=== PATIENT | female | born 2000 | race Caucasian/White ===

== ENCOUNTER 2023-11-03 01:30 | Emergency (ER) | payer MEDICAID ==
[~2023-11-03] VITALS: Ht 152.4 cm; Wt 59.4 kg
[2023-11-03 01:43] VITALS: BP 95/44; PULSE 104; RESP 20; TEMP 98.9; O2SAT 98
[2023-11-03] MEDS ORDERED: KETOROLAC 30 MG/ML VIAL IVP ONE (01:55)
[2023-11-03] MEDS ORDERED: NACL 0.9% 1,000 ML IV ONE (01:55)
[2023-11-03 02:50] LABS: APPEARANCE,URINE CLEAR (CLEAR); BILIRUBIN,URINE NEGATIVE (NEGATIVE); BLOOD, URINE TRACE-I (NEGATIVE); COLOR,URINE YELLOW (YELLOW); LEUKOCYTE ESTERASE ,URINE NEGATIVE (NEGATIVE); NITRITE, URINE NEGATIVE (NEGATIVE); PROTEIN,URINE TRACE (NEGATIVE); UGLUCOSE NEGATIVE (NEGATIVE); UROBILINOGEN,URINE 0.2 EU/dL (0.2 - 1)
[2023-11-03 02:59] LABS: BASOPHILS % (AUTO) 0.1 % (0.0-2.0); HEMATOCRIT 39.4 % (36-48); HEMOGLOBIN 13.5 g/dL (12.0-16.0); LYMPHOCYTES # (AUTO) 0.7 K/uL (2.5-16.5); LYMPHOCYTES % (AUTO) 3.5 % (20.5-51.1); MEAN CORPUSCULAR HEMOGLOBIN 31 pg (27-31); MEAN CORPUSCULAR HGB CONC 34 g/dL (33-37); MEAN CORPUSCULAR VOLUME 90.9 fL (80-94); MONOCYTES # (AUTO) 0.9 K/uL (0.8-1.0); MONOCYTES % (AUTO) 4.7 % (1.7-9.3); NEUTROPHILS # (AUTO) 16.9 K/uL (1.8-7.7); NEUTROPHILS % (AUTO) 91.7 % (42.2-75.2); PLATELET COUNT (AUTO) 244 K/uL (140-450); RED BLOOD CELL COUNT(AUTO) 4.33 MIL/uL (4.20-5.40); RED CELL DISTRIBUTION WIDTH 12.9 % (11.6-13.7); WHITE BLOOD COUNT (AUTO) 18.5 K/uL (4.8-10.8)
[2023-11-03 03:02] LABS: BACTERIA,URINE >30 (MANY) /HPF (None Seen); MUCUS,URINE 1+ /LPF (None Seen); RBC,URINE 0-5 /HPF (0-5); SQUAMOUS EPITHELIAL CELL,UR 4-10 (MOD) /LPF (0-3 (FEW))
[2023-11-03 03:45] LABS: POTASSIUM 3.6 mmol/L (3.5-5.1)
[2023-11-03 03:46] LABS: ANION GAP 12.8 (8-16); CARBON DIOXIDE 25.8 mmol/L (21-32); CREATININE 0.9 mg/dL (0.6-1.3)
[2023-11-03 03:50] LABS: ALBUMIN 3.9 g/dL (3.4-5.0); TOTAL BILIRUBIN 2.1 mg/dL (0.0-1.0); TOTAL PROTEIN, SERUM 8.1 g/dL (6.4-8.2)
[2023-11-03] MEDS ORDERED: IBUP-2213 PO (05:01)
[2023-11-03] MEDS ORDERED: CIPR500T4 PO (05:01)
[2023-11-03] MEDS ORDERED: ONDA8TAB87 PO (05:01)
[2023-11-03 05:13] VITALS: BP 95/44; PULSE 104; RESP 20; TEMP 98.9; O2SAT 98
== END 2023-11-03 05:13 | disposition home or self-care (01) ==
LOC: MED 01:30
DX: N39.0 Urinary tract infection, site not specified (principal); R11.2 Nausea with vomiting, unspecified; R19.7 Diarrhea, unspecified
CPT/HCPCS: 36415; 74177; 80053; 81001; 81025; 83690; 85025; 87086; 96361; 96374; 99285; J1885; J7030; Q9967

== ENCOUNTER 2023-11-06 23:52 | Emergency (ER) | payer MEDICAID ==
[~2023-11-06] VITALS: Ht 152.4 cm; Wt 58.1 kg
[~2023-11-06 23:52] MED LIST: CIPR500T4 PO; IBUP-2213 PO; ONDA8TAB87 PO
[2023-11-07 00:26] VITALS: BP 98/66; PULSE 104; RESP 16; TEMP 98.7; O2SAT 100
[2023-11-07] MEDS ORDERED: NACL 0.9% 1,000 ML IV ONE ×3 (00:50→02:05)
[2023-11-07] MEDS ORDERED: HALOPERIDOL IM 5 MG/ML VIAL IM ONE (00:50)
[2023-11-07] MEDS ORDERED: METOCLOPRAMIDE 10 MG/2 ML INJ VIAL IVP ONE (00:50)
[2023-11-07] MEDS ORDERED: cefTRIAXone 1,000 MG VIAL ONE (01:05)
[2023-11-07 01:28] LABS: HEMATOCRIT 43.8 % (36-48); HEMOGLOBIN 14.8 g/dL (12.0-16.0); MEAN CORPUSCULAR HEMOGLOBIN 31 pg (27-31); MEAN CORPUSCULAR HGB CONC 34 g/dL (33-37); MEAN CORPUSCULAR VOLUME 92.1 fL (80-94); PLATELET COUNT (AUTO) 382 K/uL (140-450); RED BLOOD CELL COUNT(AUTO) 4.75 MIL/uL (4.20-5.40); RED CELL DISTRIBUTION WIDTH 13.5 % (11.6-13.7); WHITE BLOOD COUNT (AUTO) 6.2 K/uL (4.8-10.8)
[2023-11-07 01:50] LABS: APPEARANCE,URINE HAZY (CLEAR); BILIRUBIN,URINE 2+ (NEGATIVE); BLOOD, URINE NEGATIVE (NEGATIVE); COLOR,URINE BROWN (YELLOW); LEUKOCYTE ESTERASE ,URINE NEGATIVE (NEGATIVE); NITRITE, URINE POSITIVE (NEGATIVE); PROTEIN,URINE 3+ (NEGATIVE); UGLUCOSE NEGATIVE (NEGATIVE)
[2023-11-07 01:55] LABS: ALBUMIN 2.3 g/dL (3.4-5.0); TOTAL BILIRUBIN 1.6 mg/dL (0.0-1.0); TOTAL PROTEIN, SERUM 7.4 g/dL (6.4-8.2)
[2023-11-07] MEDS ORDERED: KETOROLAC 30 MG/ML VIAL IVP ONE (01:55)
[2023-11-07 02:16] LABS: AMPHETAMINE, URINE NEGATIVE ng/ml (NEG <=1000); BARBITURATE, URINE NEGATIVE ng/ml (NEG <=200); BENZODIAZEPINE, URINE NEGATIVE ng/mL (NEG <=200); CANNABINOID, URINE NEGATIVE ng/mL (NEG <=50); COCAINE, URINE NEGATIVE ng/mL (NEG <=300); OPIATE, URINE NEGATIVE ng/mL (NEG <=2000); PHENCYCLIDINE SCREEN,URINE NEGATIVE ng/mL (NEG <=25)
[2023-11-07 02:20] LABS: CALCIUM 8.6 mg/dL (8.5-10.1); CARBON DIOXIDE 20.1 mmol/L (21-32); POTASSIUM 3.1 mmol/L (3.5-5.1)
[2023-11-07 02:25] LABS: ICTOTEST POSITIVE (NEGATIVE)
[2023-11-07 02:26] LABS: BACTERIA,URINE 3+ /HPF (None Seen); RBC,URINE 0-5 /HPF (0-5)
[2023-11-07 02:27] LABS: MUCUS,URINE 1+ /LPF (None Seen); SQUAMOUS EPITHELIAL CELL,UR 0-3 (FEW) /LPF (0-3 (FEW))
[2023-11-07 03:16] LABS: LYMPHOCYTES % (MANUAL) 14 % (20-46); METAMYELOCYTES % 4 % (0-0); MONOCYTES % (MANUAL) 18 % (5-12)
[2023-11-07] MEDS ORDERED: KCL 20 MEQ IN 100 mL PREMIX 100 ML IV ONE ×2 (03:25→03:40)
[2023-11-07] MEDS ORDERED: POTASSIUM CHLORIDE 10 MEQ TABER PO ONE ×2 (03:25→03:40)
[2023-11-07] MEDS ORDERED: MORPHINE SULFATE 4 MG/ML SYR IVP ONE (04:25)
[2023-11-07] MEDS ORDERED: ONDANSETRON 4 MG/2 ML VIAL IVP ONE (04:25)
[2023-11-07] MEDS ORDERED: DOXYCYCLINE 100 MG in DEXTROSE 5% 100 ML IV STA (05:05)
[2023-11-07] MEDS ORDERED: metroNIDAZOLE 500 MG/NS PREMIX 100 ML IV ONE (05:05)
[2023-11-07] MEDS ORDERED: DOXYCYCLINE 100 MG VIAL IV ONE (05:40)
[2023-11-07] MEDS ORDERED: ACETAMINOPHEN 325 MG TAB PO PRN (06:20)
[2023-11-07] MEDS ORDERED: ONDANSETRON 4 MG/2 ML VIAL IVP PRN (06:20)
[2023-11-07] MEDS ORDERED: IPRATROPIUM 0.02% 0.5 MG/2.5 ML NEBU INH PRN (06:20)
[2023-11-07] MEDS ORDERED: NACL 0.45% 1,000 ML IV SCH (06:20)
[2023-11-07] MEDS ORDERED: HYDROcodone/APAP 5/325 MG 1 TAB TAB PO PRN (06:20)
[2023-11-07] MEDS ORDERED: MORPHINE SULFATE 4 MG/ML SYR IVP PRN (06:20)
[2023-11-07] MEDS ORDERED: VANCOMYCIN PER PHARMACY MC PRN (06:20)
[2023-11-07] MEDS ORDERED: ALBUTEROL 0.083% 2.5 MG/3 ML NEBU INH PRN (06:20)
[2023-11-07] MEDS ORDERED: VANCOMYCIN 1GM/DEXT 5% PREMIX 200 ML IV SCH (06:50)
[2023-11-07] MEDS ORDERED: NOREPINEPHRINE 4 MG in DEXTROSE 5% 250 ML IV ONE (07:50)
[2023-11-07] MEDS ORDERED: NOREPINEPHRINE 4 MG/4 ML VIAL IV ONE (07:55)
[2023-11-07] MEDS ORDERED: VANCOMYCIN 1,000 MG VIAL ONE (08:34)
[2023-11-07 09:05] LABS: LACTIC ACID 3.4 mmol/L (0.4-2.0)
[2023-11-07 12:05] VITALS: BP 91/55; PULSE 156; RESP 54; TEMP 98.4; O2SAT 99
[2023-11-07] MEDS ORDERED: PIPERACILLIN/TAZOBACTAM 2.25 GM in DEXTROSE 5% 50 ML IV SCH (13:00)
== END 2023-11-07 12:05 | disposition short-term general hospital (02) ==
LOC: MED 23:52
DX: N73.9 Female pelvic inflammatory disease, unspecified (principal); Z20.822 Contact with and (suspected) exposure to COVID-19; N70.91 Salpingitis, unspecified; K65.1 Peritoneal abscess; K52.9 Noninfective gastroenteritis and colitis, unspecified; K81.9 Cholecystitis, unspecified; E86.0 Dehydration; R82.81 Pyuria; Z79.899 Other long term (current) drug therapy
CPT/HCPCS: 36415; 71045; 74177; 76705; 80048; 80076; 80305; 81001; 81025; 82550; 82553; 83605; 83690; 85025; 87040; 87086; 87426; 96361; 96365; 96366; 96367; 96368; 96372; 96375; 99291; J0696; J1630; J1885; J2270; J2405; J2765; J3370; J3480; J3490; J7030; J7060; Q0092; Q9967